=== PATIENT | female | born 1970 | race African-American/Black ===

== ENCOUNTER 2018-06-11 01:08 | Emergency (ER) | payer OTHER ==
[~2018-06-11] VITALS: Ht 170.2 cm; Wt 90.0 kg
[2018-06-11] MEDS ORDERED: LORAZEPAM 1MG TABLET PO ONE (03:00)
[2018-06-11 12:22] VITALS: BP 119/69
== END 2018-06-11 12:26 | disposition home or self-care (01) ==
LOC: ER 01:49
DX: R07.89 Other chest pain (principal); F41.9 Anxiety disorder, unspecified; F32.9 Major depressive disorder, single episode, unspecified; F43.10 Post-traumatic stress disorder, unspecified; F17.210 Nicotine dependence, cigarettes, uncomplicated
CPT/HCPCS: 71045; 93005; 99284